=== PATIENT | male | born 1970 | race Caucasian/White ===

== ENCOUNTER 2017-11-27 18:57 | Emergency (ER) | END 2017-11-28 00:54 | disposition home or self-care (01) ==

== ENCOUNTER 2018-02-21 21:09 | Emergency (ER) | END 2018-02-22 01:32 | disposition home or self-care (01) ==

== ENCOUNTER 2018-08-23 19:15 | Observation (INO) | payer SELFPAY ==
[~2018-08-23] VITALS: Ht 165.1 cm; Wt 91.4 kg
[~2018-08-23 19:15] MED LIST: AMLO-147 PO; FIORICET PO; LOSA25TA12 PO
[2018-08-23] MEDS ORDERED: NICARDipine HCL 30 MG CAPSULE PO ONE (22:30)
[2018-08-23] MEDS ORDERED: ASPIRIN 325 MG TAB PO STA (22:35)
[2018-08-23] MEDS ORDERED: NITROGLYCERIN 2% 1 GM OINT PKT TD STA (22:35)
--- NOTE | 2018-08-23 23:05 | ERD ---
ER Documentation Chief Complaint Chief Complaint high BP; dizzy spells the other day; pain on back of head HPI This is a 48-year-old male who is out of his medication for hypertension. He says he has had some substernal chest pressure off and on for 2 days. He said the pain started yesterday and was exertional today has become chest pain at rest. He says he knows his blood pressure is high because he feels it. He also has a very mild dull headache. When he gets the pressure he feels short of breath. No radiation. He does get dizzy. Blood pressure on exam is 249/114 ROS All systems reviewed and are negative except as per history of present illness. Medications Home Meds Active Scripts Amlodipine Besylate* (Amlodipine Besylate*) 10 Mg Tablet, 10 MG PO DAILY, #30 TAB Prov:MARY BETH RODGERS MD 02/22/18 Losartan Potassium* (Losartan Potassium*) 25 Mg Tablet, 25 MG PO DAILY, #30 TAB Prov:MARY BETH RODGERS MD 02/22/18 Acetamin/Butalbital/Caffeine* (Fioricet*) [id number] Tab, 1 TAB PO Q6H PRN for PAIN, #15 TAB Prov:MARY BETH RODGERS MD 02/22/18 Losartan Potassium* (Losartan Potassium*) 25 Mg Tablet, 25 MG PO DAILY, #30 TAB Prov:REGGIE CARLSON MD 11/27/17 Amlodipine Besylate* (Amlodipine Besylate*) 10 Mg Tablet, 10 MG PO DAILY, #30 TAB Prov:REGGIE CARLSON MD 11/27/17 Allergies Allergies: Coded Allergies: No Known Allergies (Verified Allergy, Mild, 11/27/17) PMhx/Soc History of Surgery: No Anesthesia Reaction: No Hx Neurological Disorder: No Hx Respiratory Disorders: No Hx Cardiac Disorders: Yes (htn) Hx Psychiatric Problems: No Hx Miscellaneous Medical Probl: No Hx Alcohol Use: Yes (once/year) Hx Substance Use: Yes (marijuana occasionally) Hx Tobacco Use: No Smoking Status: Never smoker FmHx Family History: No coronary disease Physical Exam Vitals Vital Signs Date Temp Pulse Resp B/P (MAP) Pulse Ox O2 O2 Flow FiO2 Time Delivery Rate 08/23/18 98.2 63 20 214/114 98 19:18 (147) Physical Exam Const: Well-developed, well-nourished Head: Atraumatic, normocephalic Eyes: Normal Conjunctiva, PERRLA, EOMI, normal sclera, no nystagmus ENT: Normal External Ears, Nose and Mouth, moist mucus membranes. Neck: Full range of motion. No meningismus, no lymphadenopathy. Resp: Clear to auscultation bilaterally, no wheezing, rhonchi, rales Cardio: Regular rate and rhythm, no murmurs, S1 S2 present Abd: Soft, non tender x 4, non distended. Normal bowel sounds, no guarding or rebound, no pulsitile abdominal masses or bruits Skin: No petechiae or rashes, no ecchymosis , no maculopapular rash Back: No midline or flank tenderness Ext: No cyanosis, or edema, FROM x 4, normal inspection, n eurovascularly intact x 4 Neur: Awake and alert, STR 5/5 x 4, sensation intact x 4, no focal f indings, cerebellum intact Psych: Normal Mood and Affect Result Diagram: 08/23/181 08/23/181 Results 24 hrs Laboratory Tests Test 08/23/18 22:41 White Blood Count 8.1 10^3/ul Red Blood Count 5.63 10^6/ul Hemoglobin 15.3 g/dl Hematocrit 46.1 % Mean Corpuscular Volume 81.9 fl Mean Corpuscular Hemoglobin 27.2 pg Mean Corpuscular Hemoglobin Concent 33.2 g/dl Red Cell Distribution Width 13.5 % Platelet Count 159 10^3/UL Mean Platelet Volume 12.3 fl Immature Granulocytes % 0.400 % Neutrophils % 52.6 % Lymphocytes % 38.0 % Monocytes % 6.5 % Eosinophils % 2.1 % Basophils % 0.4 % Nucleated Red Blood Cells % 0.0 /100WBC Immature Granulocytes # 0.030 10^3/ul Neutrophils # 4.2 10^3/ul Lymphocytes # 3.1 10^3/ul Monocytes # 0.5 10^3/ul Eosinophils # 0.2 10^3/ul Basophils # 0.0 10^3/ul Nucleated Red Blood Cells # 0.0 10^3/ul Sodium Level 141 mmol/L Potassium Level 4.0 mmol/L Chloride Level 104 mmol/L Carbon Dioxide Level 29 mmol/L Anion Gap 8 Blood Urea Nitrogen 14 mg/dl Creatinine 0.95 mg/dl Est Glomerular Filtrat Rate mL/min > 60 mL/min Glucose Level 125 mg/dl Calcium Level 9.0 mg/dl Total Bilirubin 0.8 mg/dl Direct Bilirubin 0.00 mg/dl Indirect Bilirubin 0.8 mg/dl Aspartate Amino Transf (AST/SGOT) 26 IU/L Alanine Aminotransferase (ALT/SGPT) 34 IU/L Alkaline Phosphatase 91 IU/L Troponin I < 0.012 ng/ml B-Type Natriuretic Peptide 36 PG/ML Total Protein 7.9 g/dl Albumin 4.4 g/dl Globulin 3.50 g/dl Albumin/Globulin Ratio 1.25 Current Medications Medications Dose Sig/Jayce Start Time Status Last (Trade) Ordered Route PRN Stop Time Admin Dose Reason Admin Nicardipine 30 mg ONCE ONCE 08/23/18 DC 08/23/18 HCl PO 22:30 22:30 (Cardene) 08/23/18 22:31 Aspirin 325 mg ONCE STAT 08/23/18 DC 08/23/18 (Aspirin) PO 22:35 22:52 08/23/18 22:36 1 inch ONCE STAT 08/23/18 DC 08/23/18 Nitroglycerin TD 22:35 22:52 08/23/18 22:36 (Nitroglyceri n 2% Oint) Procedures/MDM EKG: Rate/Rhythm: Sinus bradycardia nonspecific T wave QRS, ST, QT: NORMAL [place], QRS, QT] Impression: Sinus bradycardia DIAGNOSTIC IMAGING REPORT Patient: ANNETTE ESQUIVEL : 1970 Age: 48 Sex: M [id number] DOS: 08/23/18 2235 Ordering MD: ASHLEIGH PETERSEN DO Location: E/R Room/Bed: PROCEDURE: Chest. CLINICAL INDICATION: Chest pain. TECHNIQUE: Single frontal view of the chest was obtained. COMPARISON: 11/27/2017. FINDINGS: The cardiac silhouette is within normal limits. The aortic arch is unremarka ble. There is no focal consolidation, vascular congestion or pleural effusion. There is no pneumothorax. IMPRESSION: No evidence for active cardiopulmonary disease. .Remi Rangel MD, Date Time Electronically viewed and signed by .Remi Rangel MD, on 08/23/2018 23:20 .T/ CC: ASHLEIGH PETERSEN DO [id number] Cardiac Admit MDM: Patient's symptoms are concerning for cardiac cause will require inpatient workup and continuous monitoring. Further w/u for ischemia, arrhythmia, PE or dissection will be deferred to the inpatient team. Departure Diagnosis: Primary Impression: Chest pain Chest pain type: unspecified Qualified Codes: R07.9 - Chest pain, unspec ified Additional Impression: Hypertension Hypertension type: unspecified Qualified Codes: I10 - Essential (primary) hypertension Condition: Stable ASHLEIGH PETERSEN DO August 23, 2018 23:05
[2018-08-24] VITALS (11 sets, daily range): BP systolic 153–184; BP diastolic 88–109; PULSE 44–82; RESP 18–20; Ht 165.1 cm; Wt 91.4 kg
[2018-08-24] MEDS ORDERED: SOD CHLORIDE 0.9% 1,000 ML IV SCH (00:19)
--- NOTE | 2018-08-24 00:23 | HP ---
Date/Time of Note Date/Time of Note DATE: 08/24/18 TIME: 00:23 Assessment/Plan VTE Prophylaxis SCD applied (from Nsg): Yes Pharmacological prophylaxis: NA/contraindicated Pharm contraindication: low risk/ambulating Lines/Catheters IV Catheter Type (from Nrsg): Saline Lock Assessment/Plan Hospital Course This is a 48-year-old male being admitted to the telemetry floor for observation for: #1 chest pain: Rule out ACS versus anginal equivalent. Patient did report having exertional symptoms as well. Also possibly secondary to his hypertensive urgency . will check an echocardiogram, will trend cardiac enzymes x3, the first that was negative. We will check hemoglobin A 1C, lipid panel, TSH. Will provide nitro/morphine. Will consult cardiology , I do feel the patient would warrant a stress test. #2 hypertensive urgency: Patient did present with blood pressures greater than 200. We will gradually lower his blood pressures given that they likely have not been under control for quite some time. PRN Vasotec for systolic greater than 180. I will resume his previous amlodipine and losartan medications to be started in the afternoon. Will monitor patient's blood pressures. #3 anxiety/stress: Patient has been dealing with unfortunate life circumstances with the passing of his and his child. Will consult psych for further guidance. #4 obesity: We will check hemoglobin A1c, lipid panel, TSH #5 DVT GI prophylaxis: SCDs, no GI prophylaxis indicated Further treatment strategy will be implemented as per the clinical course. Result Diagram: 08/23/181 08/23/181 Results 24hrs Laboratory Tests Test 08/23/18 22:41 White Blood Count 8.1 Red Blood Count 5.63 Hemoglobin 15.3 Hematocrit 46.1 Mean Corpuscular Volume 81.9 L Mean Corpuscular Hemoglobin 27.2 L Mean Corpuscular Hemoglobin Concent 33.2 Red Cell Distribution Width 13.5 Platelet Count 159 Mean Platelet Volume 12.3 H Immature Granulocytes % 0.400 Neutrophils % 52.6 Lymphocytes % 38.0 Monocytes % 6.5 Eosinophils % 2.1 Basophils % 0.4 Nucleated Red Blood Cells % 0.0 Immature Granulocytes # 0.030 Neutrophils # 4.2 Lymphocytes # 3.1 H Monocytes # 0.5 Eosinophils # 0.2 Basophils # 0.0 Nucleated Red Blood Cells # 0.0 Sodium Level 141 Potassium Level 4.0 Chloride Level 104 Carbon Dioxide Level 29 Anion Gap 8 Blood Urea Nitrogen 14 Creatinine 0.95 Est Glomerular Filtrat Rate mL/min > 60 Glucose Level 125 Calcium Level 9.0 Total Bilirubin 0.8 Direct Bilirubin 0.00 Indirect Bilirubin 0.8 Aspartate Amino Transf (AST/SGOT) 26 Alanine Aminotransferase (ALT/SGPT) 34 Alkaline Phosphatase 91 Troponin I < 0.012 B-Type Natriuretic Peptide 36 Total Protein 7.9 Albumin 4.4 Globulin 3.50 H Albumin/Globulin Ratio 1.25 HPI/ROS Admit Date/Time Admit Date/Time Hx of Present Illness Chief complaint: Chest pressure This is a 48-year-old male who is out of his medication for hypertension for the last 4 months. He reports that he came in with substernal chest pressure that is going on for the last 2 days. Yesterday the pressure became exertional. He does report that he has been dealing with a lot of stress secondary to the of his and then his child over the last few months. He has also not been sleeping much over the last few days. Along with chest pain he felt radiation of it to his left arm. At the current time his chest pain and that pressure have resolved. He does report that he has a blood pressure monitor at home but he has not been checking them much. His blood pressure on arrival to the emergency department is greater than 200. Patient does report that he was seen by Candie thompson in the past and he was recommended to get a stress test however for some reason it was not performed when he was admitted there. Allergies: NKDA Medications: None ROS Const: As per HPI Eyes : No pain discharge or redness or change in visual acuity ENT: No pain, sore throat, congestion, congestion, dysphagia or discharge Respiratory: No shortness of breath, cough, sputum, wheezing, or pleuritic pain Cardiovascular: As per HPI GI : no change in appetite, abdominal pain, nausea, vomiting, diarrhea, constipation, or change in the color his stool Genitourinary: No dysuria, hematuria, flank pain , discharge or CVA tenderness Musculoskeletal: No joint pain, back pain, neck pain, restricted range of motion in neck or joints Skin: No rash, bruising or hives Neuro: As per HPI Endocrine: No polyuria, polydipsia, temperature intolerance Psych: No hallucination, depression, anxiety or suicidal ideation PMH/Family/Social Past Medical History Hypertension, prediabetes Coded Allergies: No Known Allergies (Verified Allergy, Mild, 11/27/17) Past Surgical History Past Surgical Hx: no surgical history Family History Significant Family History: no pertinent family hx Social History Alcohol Use: none Smoking Status: Never smoker Drug Use: marijuana Exam/Review of Systems Vital Signs Vitals Vital Signs Date Temp Pulse Resp B/P (MAP) Pulse Ox O2 O2 Flow FiO2 Time Delivery Rate 08/24/18 67 18 179/94 100 Room Air 00:10 (122) 08/23/18 98.2 19:18 Exam Exam General: Very pleasant male currently lying in bed in no acute distress HEENT: Atraumatic, normocephalic. The pupils are equal, round and reactive. Extraocular motor are intact Neck: Supple with full range of motion. No rigidity or meningismus Chest: Nontender Lungs: Clear to auscultation bilaterally no crackles rales or wheezing Heart: Normal S1-S2, Regular rhythm and rate. No overt murmurs appreciated on auscultation Abdomen: Obese, soft , nontender, nondistended , bowel sounds are present. No guarding no rebound tenderness , No masses or organomegaly. No costovertebral temporal angle mass Extremities: Normal to inspection, no edema no cyanosis Neurologic: Normal mental status, speech normal, cranial nerves II through XII are intact, motor and sensory are intact, Additional Comments PROCEDURE: Chest. CLINICAL INDICATION: Chest pain. TECHNIQUE: Single frontal view of the chest was obtained. COMPARISON: 11/27/2017. FINDINGS: The cardiac silhouette is within normal limits. The aortic arch is unremarkable. There is no focal consolidation, vascular congestion or pleural effusion. There is no pneumothorax. IMPRESSION: No evidence for active cardiopulmonary disease. .Remi Rangel MD, Date Time Electronically viewed and signed by .Remi Rangel MD, on 08/23/2018 23:20 .T/ CC: ASHLEIGH PETERSEN DO [id number] EKG: Rate/Rhythm: Sinus bradycardia nonspecific T wave QRS, ST, QT: NORMAL [place], QRS, QT] Impression: Sinus bradycardia DAIN YUNG August 24, 2018 00:23
[2018-08-24] MEDS ORDERED: NITROGLYCERIN (SL) 0.4 MG TAB SL PRN (00:30)
[2018-08-24] MEDS ORDERED: ACETAMINOPHEN 325 MG TAB PO PRN (00:30)
[2018-08-24] MEDS ORDERED: morphine 2 MG INJ IV PRN (00:30)
[2018-08-24] MEDS ORDERED: BISACODYL (EC) 5 MG TAB PO PRN (00:30)
[2018-08-24] MEDS ORDERED: DOCUSATE SODIUM 100 MG CAP PO PRN (00:30)
[2018-08-24] MEDS ORDERED: ONDANSETRON 4 MG INJ IV PRN ×2 (00:30)
[2018-08-24] MEDS ORDERED: NACL 0.9% 3 ML SYG IV SCH (00:30)
[2018-08-24] MEDS: ACETAMINOPHEN 325 MG TAB PO PRN ×3 (01:46→17:44)
[2018-08-24] MEDS: ENALAPRILAT 1.25 MG INJ IV PRN (02:40)
[2018-08-24] MEDS ORDERED: traZODone 50 MG TAB PO ONE ×2 (04:00→21:30)
[2018-08-24] MEDS ORDERED: traZODone 100 MG TAB ONE (04:05)
--- NOTE | 2018-08-24 11:30 | CONS ---
Assessment/Plan Assessment/Plan Hospital Course (Demo Recall) Assessment: Chest pain - likely due to elevated blood pressures Hypertensive urgency - off of his medications for 4 months Dyslipidemia Recommendations: -serial troponins -given multiple presentations for chest pain and no prior coronary work up, will obtain coronary CTA -continue amlodipine 10mg daily -continue losartan 25mg daily, up titrate as needed -continue atorvastatin 40mg daily Consultation Date/Type/Reason Admit Date/Time Type of Consult Cardiology Reason for Consultation chest pain Date/Time of Note DATE: 08/24/18 TIME: 11:25 Hx of Present Illness The patient is a 48 year-old male who presented with two days of chest pressure. He has a history of hypertension, but had been off of his medications for four months due to lack of health insurance. His initial blood pressure on presentation was elevated at 214/114. EKG showed sinus bradycardia at 53 bpm with nonspecific T wave changes. Initial troponin was negative. He has presented several times in the past with chest pain. He was apparently recommended to have a cardiac stress test during a previous visit at [facility], but never received the test. 14 point review of systems negative other than per HPI. Past Medical History Medical History: hypertension Home Meds Active Scripts Amlodipine Besylate* (Amlodipine Besylate*) 10 Mg Tablet, 10 MG PO DAILY, #30 TAB Prov:MARY BETH RODGERS MD 02/22/18 Losartan Potassium* (Losartan Potassium*) 25 Mg Tablet, 25 MG PO DAILY, #30 TAB Prov:MARY BETH RODGERS MD 18 Acetamin/Butalbital/Caffeine* (Fioricet*) [id number] Tab, 1 TAB PO Q6H PRN for PAIN, #15 TAB Prov:MARY BETH RODGERS MD 02/22/18 Losartan Potassium* (Losartan Potassium*) 25 Mg Tablet, 25 MG PO DAILY, #30 TAB Prov:REGGIE CARLSON MD 11/27/17 Amlodipine Besylate* (Amlodipine Besylate*) 10 Mg Tablet, 10 MG PO DAILY, #30 TAB Prov:REGGIE CARLSON MD 11/27/17 Medications Current Medications IV Flush (NS 3 ml) 3 ml PER PROTOCOL IV ; Start 08/24/18 at 00:30 Ondansetron HCl (Zofran Inj) 4 mg Q6H PRN IV NAUSEA/VOMITING; Start 08/24/18 at 00:30 Nitroglycerin (Nitroglycerin (Sl Tab) 0.4 Mg) 1 tab Q5M PRN SL .CHEST PAIN; Start 08/24/18 at 00:30 Acetaminophen (Tylenol Tab) 650 mg Q6H PRN PO .PAIN 1-3 OR TEMP Last administered on 08/24/18at 02:33; Admin Dose 650 MG; Start 08/24/18 at 00:30 Morphine Sulfate (morphine) 2 mg Q4H PRN IV .PAIN 7-10; Start 08/24/18 at 00:30 Docusate Sodium (Colace) 100 mg Q12H PRN PO .CONSTIPATION; Start 08/24/18 at 00:30 Bisacodyl (Dulcolax) 5 mg DAILY PRN PO .CONSTIPATION; Start 08/24/18 at 00:30 Enalaprilat (Vasotec Iv) 1.25 mg Q6H PRN IV ELEVATED BLOOD PRESSURE Last administered on 08/24/18at 02:40; Admin Dose 1.25 MG; Start 08/24/18 at 00:30 Amlodipine Besylate (Norvasc) 10 mg DAILY PO ; Start 08/24/18 at 12:00 Losartan Potassium (Cozaar) 25 mg DAILY PO ; Start 08/24/18 at 12:00 Sodium Chloride 1,000 ml @ 80 mls/hr [id number] IV Last administered on 08/24/18at 02:33; Admin Dose 80 MLS/HR; Start 08/24/18 at 00:19; Stop 08/24/18 at 12:48 Ondansetron HCl (Zofran Inj) 4 mg ER BRIDGE PRN IV NAUSEA/VOMITING; Start 08/24/18 at 00:30; Stop 08/25/18 at 00:29 Acetaminophen (Tylenol Tab) 650 mg ER BRIDGE PRN PO .MILD PAIN 1-3 OR TEMP; Start 08/24/18 at 00:30; Stop 08/25/18 at 00:29 Atorvastatin Calcium (Lipitor) 40 mg HS PO ; Start 08/24/18 at 21:00 Allergies: Coded Allergies: No Known Allergies (Verified Allergy, Mild, 11/27/17) Past Surgical History Past Surgical Hx: no surgical history Family History Significant Family History: no pertinent family hx Social History Alcohol Use: none Smoking Status: Never smoker Drug Use: marijuana Exam/Review of Systems Vital Signs Vitals Vital Signs Date Temp Pulse Resp B/P (MAP) Pulse Ox O2 O2 Flow FiO2 Time Delivery Rate 08/24/18 97.5 54 20 157/99 95 Room Air 11:21 (118) Intake and Output 08/23/18 08/23/18 08/24/18 1515:00 23:00 07:00 IntakeIntake Total 300 ml BalanceBalance 300 ml Exam Constitutional: alert, well developed Psych: no complaints, nl mood/affect Head: normocephalic, atraumatic Eyes: nl conjunctiva, nl lids ENMT: nl external ears & nose, nl nasal mucosa & septum Neck: supple, non-tender Respiratory: clear to auscultation, normal air movement Cardiovascular: regular rate and rhythm Gastrointestinal: soft, non-tender Musculoskeletal: nl extremities to inspection Extremities: No cyanosis, No clubbing, No edema Neurological: nl mental status, nl speech Labs Result Diagram: 08/24/18 0457 08/24/18 0457 Results 24hrs Laboratory Tests Test 08/23/18 22:41 08/24/18 04:57 White Blood Count 8.1 7.2 Red Blood Count 5.63 5.47 Hemoglobin 15.3 14.9 Hematocrit 46.1 44.8 Mean Corpuscular Volume 81.9 L 81.9 L Mean Corpuscular Hemoglobin 27.2 L 27.2 L Mean Corpuscular Hemoglobin Concent 33.2 33.3 Red Cell Distribution Width 13.5 13.5 Platelet Count 159 165 Mean Platelet Volume 12.3 H 12.8 H Immature Granulocytes % 0.400 0.100 Neutrophils % 52.6 48.4 Lymphocytes % 38.0 41.9 Monocytes % 6.5 7.3 Eosinophils % 2.1 1.9 Basophils % 0.4 0.4 Nucleated Red Blood Cells % 0.0 0.0 Immature Granulocytes # 0.030 0.010 Neutrophils # 4.2 3.5 Lymphocytes # 3.1 H 3.0 H Monocytes # 0.5 0.5 Eosinophils # 0.2 0.1 Basophils # 0.0 0.0 Nucleated Red Blood Cells # 0.0 0.0 Sodium Level 141 140 Potassium Level 4.0 3.7 Chloride Level 104 106 Carbon Dioxide Level 29 29 Anion Gap 8 5 Blood Urea Nitrogen 14 15 Creatinine 0.95 1.01 Est Glomerular Filtrat Rate mL/min > 60 > 60 Glucose Level 125 99 Calcium Level 9.0 8.9 Total Bilirubin 0.8 0.9 Direct Bilirubin 0.00 0.00 Indirect Bilirubin 0.8 0.9 Aspartate Amino Transf (AST/SGOT) 26 24 Alanine Aminotransferase (ALT/SGPT) 34 32 Alkaline Phosphatase 91 72 Troponin I < 0.012 B-Type Natriuretic Peptide 36 Total Protein 7.9 7.1 Albumin 4.4 4.0 Globulin 3.50 H 3.10 Albumin/Globulin Ratio 1.25 1.29 Hemoglobin A1c 5.9 Magnesium Level 2.2 Triglycerides Level 200 H Cholesterol Level 234 H LDL Cholesterol, Calculated 155 HDL Cholesterol 39 Cholesterol/HDL Ratio 6.0 Thyroid Stimulating Hormone (TSH) 2.930 Medications Medications Current Medications IV Flush (NS 3 ml) 3 ml PER PROTOCOL IV ; Start 08/24/18 at 00:30 Ondansetron HCl (Zofran Inj) 4 mg Q6H PRN IV NAUSEA/VOMITING; Start 08/24/18 at 00:30 Nitroglycerin (Nitroglycerin (Sl Tab) 0.4 Mg) 1 tab Q5M PRN SL .CHEST PAIN; Start 08/24/18 at 00:30 Acetaminophen (Tylenol Tab) 650 mg Q6H PRN PO .PAIN 1-3 OR TEMP Last administered on 08/24/18at 02:33; Admin Dose 650 MG; Start 08/24/18 at 00:30 Morphine Sulfate (morphine) 2 mg Q4H PRN IV .PAIN 7-10; Start 08/24/18 at 00:30 Docusate Sodium (Colace) 100 mg Q12H PRN PO .CONSTIPATION; Start 08/24/18 at 00:30 Bisacodyl (Dulcolax) 5 mg DAILY PRN PO .CONSTIPATION; Start 08/24/18 at 00:30 Enalaprilat (Vasotec Iv) 1.25 mg Q6H PRN IV ELEVATED BLOOD PRESSURE Last administered on 08/24/18at 02:40; Admin Dose 1.25 MG; Start 08/24/18 at 00:30 Amlodipine Besylate (Norvasc) 10 mg DAILY PO ; Start 08/24/18 at 12:00 Losartan Potassium (Cozaar) 25 mg DAILY PO ; Start 08/24/18 at 12:00 Sodium Chloride 1,000 ml @ 80 mls/hr [id number] IV Last administered on 08/24/18at 02:33; Admin Dose 80 MLS/HR; Start 08/24/18 at 00:19; Stop 08/24/18 at 12:48 Ondansetron HCl (Zofran Inj) 4 mg ER BRIDGE PRN IV NAUSEA/VOMITING; Start 08/24/18 at 00:30; Stop 08/25/18 at 00:29 Acetaminophen (Tylenol Tab) 650 mg ER BRIDGE PRN PO .MILD PAIN 1-3 OR TEMP; Start 08/24/18 at 00:30; Stop 08/25/18 at 00:29 Atorvastatin Calcium (Lipitor) 40 mg HS PO ; Start 08/24/18 at 21:00 ANA LUISA MUÑOZ MD August 24, 2018 11:30
--- NOTE | 2018-08-24 11:55 | RADRPT ---
Vent Rate: 53 bpm RR Interval: 0 msec NV Interval: 148 msec QRS Duration: 86 msec QT Interval: 412 msec QTC Interval: 386 msec P-R-T [place]: 10 - -12 - 43 degrees Sinus bradycardia Nonspecific T wave abnormality Abnormal ECG Electronically Signed By: *[facility]
[2018-08-24] MEDS: AMLODIPINE 10 MG TAB PO SCH (12:07)
[2018-08-24] MEDS: LOSARTAN 25 MG TAB PO SCH (12:07)
--- NOTE | 2018-08-24 13:00 | RADRPT ---
Echocardiogram Report Patient Name: ANNETTE ESQUIVELPatient ID: [id number] : 1970 (48y 2m)Study Date: 08/24/2018 7:38:59 AM Gender: MAccession #: [id number] Tech: Marylou Crow RDCS Location: 605 Ref.Physician: DAIN YUNG Height(Cm): BSA: Weight(Kg): Quality: AdequateOrder Physician: DAIN YUNG Account #: Procedures: Echocardiographic Report: Transthoracic echocardiogram with complete 2D, M-Mode, and doppler examination. Indications: Chest Pain. Measurements: 2D/M Mode Doppler Measurement Value Normal Range Measurement Value Normal Range LVIDd 2D 4.0 [ 4.2 - 5.8 ] cm AV Peak Dipesh 1.5 [ 100.0 - 170.0 ] cm/sec LVIDs 2D 2.4 [ 2.5 - 4.0 ] cm AV Peak PG 9.0 [ 2.0 - 9.0 ] mmHg LVPWd 2D 1.4 [ 0.6 - 1.0 ] cm LVOT Peak Dipesh 1.2 [ 70.0 - 110.0 ] cm/sec IVSd 2D 1.3 [ 0.6 - 1.0 ] cm LVOT Peak PG 5.0 [ 2.0 - 6.0 ] mmHg AoR Diam 2D 3.3 [ 2.6 - 3.4 ] cm MV E Peak Dipesh 0.6 [ 60.0 - 130.0 ] cm/sec EDV 2D 69.2 [ 62.0 - 150.0 ] ml MV A Peak Dipesh 0.9 [ 100.0 - 120.0 ] cm/sec ESV 2D 20.2 [ 21.0 - 61.0 ] ml MV E/A 0.7 [ 0.8 - 1.5 ] ratio EF 2D 70.8 [ 52.0 - 72.0 ] percent MV Decel Time 222 [ 104 - 258 ] msec LA Dimen 2D 3.1 [ 3.0 - 4.0 ] cm Lat E` Dipesh 0.1 [ 10.0 - 15.0 ] cm/sec Lateral E/E` 9.8 [ 1.0 - 2.0 ] ratio MV E/A 0.7 [ 0.8 - 1.5 ] ratio Findings: Left Ventricle: Normal left ventricular systolic function. Normal left ventricular cavity size. Moderate concentric left ventricular hypertrophy. Ejection fraction is visually estimated at 65 %. Tissue Doppler/Mitral Doppler indices are consistent with impaired relaxation (Stage I diastolic dysfunction). Right Ventricle: Normal right ventricular size. Normal right ventricular systolic function. Left Atrium: The left atrium is normal in size. Right Atrium: The right atrium is normal in size. Mitral Valve: Normal appearance and function of the mitral valve with trace physiologic regurgitation. Aortic Valve: Normal appearance of the aortic valve. No significant aortic stenosis or insufficiency. Tricuspid Valve: Normal appearance of the tricuspid valve. Unable to obtain RVSP due to minimal presence of tricuspid regurgitation. Pulmonic Valve: Normal pulmonic valve appearance. Pericardium: Normal pericardium with no significant pericardial effusion. Aorta: Normal aortic root. IVC: Normal size and normal respiratory collapse consistent with normal right atrial pressure. Conclusions: Normal left ventricular systolic function. Normal left ventricular cavity size. Moderate concentric left ventricular hypertrophy. Ejection fraction is visually estimated at 65 %. Tissue Doppler/Mitral Doppler indices are consistent with impaired relaxation (Stage I diastolic dysfunction). Electronically Signed By: Jamel Bermudez 2018-08-24 12:58:57 PDT
[2018-08-24] MEDS ORDERED: SOD CHLORIDE 0.9% 100 ML ONE (14:55)
[2018-08-24] MEDS ORDERED: IOHEXOL 100 ML ONE (14:55)
[2018-08-24] MEDS ORDERED: IOHEXOL 350MG/ML 50 ML BTL ONE (14:55)
[2018-08-24] MEDS ORDERED: ATORVASTATIN 40 MG TAB PO SCH (21:00)
[2018-08-25] VITALS (11 sets, daily range): BP systolic 139–202; BP diastolic 81–108; PULSE 53–81; RESP 18–20
[2018-08-25] MEDS: LOSARTAN 25 MG TAB PO SCH (08:01)
[2018-08-25] MEDS: AMLODIPINE 10 MG TAB PO SCH (08:01)
--- NOTE | 2018-08-25 08:28 | CONS ---
Assessment/Plan Assessment/Plan Hospital Course (Demo Recall) Chest pain - likely due to elevated blood pressures. Cardiac CTA without obstructive disease CAD: nonobstructive. LAD 40%, RCA 30% on Cardiac CTA 08/24/18 Hypertensive urgency - off of his medications for 4 months. Needs better control Dyslipidemia -continue amlodipine 10mg daily -increase to losartan 100mg daily -continue atorvastatin 40mg daily -add ASA 81mg for CAD otherwise ok for d/c if BP is <160. Can titrate further as outpt Consultation Date/Type/Reason Admit Date/Time August 24, 2018 at 00:23 Initial Consult Date Type of Consult Cardiology Date/Time of Note DATE: 08/25/18 TIME: 08:24 24 HR Interval Summary Free Text/Dictation No events. No chest pain. BP still high. Cardiac CT completed Exam/Review of Systems Vital Signs Vitals Vital Signs Date Temp Pulse Resp B/P (MAP) Pulse Ox O2 O2 Flow FiO2 Time Delivery Rate 08/25/18 97.5 73 20 175/97 95 Room Air 07:19 (123) Intake and Output 08/24/18 08/24/18 08/25/18 1515:00 23:00 07:00 IntakeIntake Total 360 ml 700 ml 750 ml BalanceBalance 360 ml 700 ml 750 ml Exam Constitutional: alert, oriented Psych: no complaints, nl mood/affect Head: normocephalic, atraumatic Neck: supple; No jvd Respiratory: clear to auscultation Cardiovascular: regular rate and rhythm; No edema, No systolic murmur Gastrointestinal: soft, non-tender; No distended Neurological: nl mental status, nl speech Labs Result Diagram: 08/25/18 0459 08/25/18 0459 Results 24hrs Laboratory Tests Test 08/24/18 12:02 08/24/18 22:56 08/25/18 04:59 Troponin I < 0.012 < 0.012 0.023 Creatine Kinase 94 87 Creatine Kinase Index 0.9 0.8 Creatinine Kinase MB (Mass) 0.80 0.71 White Blood Count 7.5 Red Blood Count 5.50 Hemoglobin 15.0 Hematocrit 45.0 Mean Corpuscular Volume 81.8 L Mean Corpuscular Hemoglobin 27.3 L Mean Corpuscular Hemoglobin Concent 33.3 Red Cell Distribution Width 13.4 Platelet Count 171 Mean Platelet Volume 13.0 H Immature Granulocytes % 0.300 Neutrophils % 46.2 Lymphocytes % 43.6 Monocytes % 6.3 Eosinophils % 3.2 Basophils % 0.4 Nucleated Red Blood Cells % 0.0 Immature Granulocytes # 0.020 Neutrophils # 3.5 Lymphocytes # 3.3 H Monocytes # 0.5 Eosinophils # 0.2 Basophils # 0.0 Nucleated Red Blood Cells # 0.0 Sodium Level 141 Potassium Level 4.1 Chloride Level 106 Carbon Dioxide Level 26 Anion Gap 9 Blood Urea Nitrogen 13 Creatinine 0.89 Est Glomerular Filtrat Rate mL/min > 60 Glucose Level 103 Calcium Level 9.1 Total Bilirubin 1.1 Direct Bilirubin 0.00 Indirect Bilirubin 1.1 Aspartate Amino Transf (AST/SGOT) 22 Alanine Aminotransferase (ALT/SGPT) 31 Alkaline Phosphatase 76 Total Protein 7.0 Albumin 3.9 Globulin 3.10 Albumin/Globulin Ratio 1.25 Medications Medications Current Medications IV Flush (NS 3 ml) 3 ml PER PROTOCOL IV ; Start 08/24/18 at 00:30 Ondansetron HCl (Zofran Inj) 4 mg Q6H PRN IV NAUSEA/VOMITING; Start 08/24/18 at 00:30 Nitroglycerin (Nitroglycerin (Sl Tab) 0.4 Mg) 1 tab Q5M PRN SL .CHEST PAIN; Start 08/24/18 at 00:30 Acetaminophen (Tylenol Tab) 650 mg Q6H PRN PO .PAIN 1-3 OR TEMP Last administered on 08/24/18at 17:44; Admin Dose 650 MG; Start 08/24/18 at 00:30 Morphine Sulfate (morphine) 2 mg Q4H PRN IV .PAIN 7-10; Start 08/24/18 at 00:30 Docusate Sodium (Colace) 100 mg Q12H PRN PO .CONSTIPATION; Start 08/24/18 at 00:30 Bisacodyl (Dulcolax) 5 mg DAILY PRN PO .CONSTIPATION; Start 08/24/18 at 00:30 Enalaprilat (Vasotec Iv) 1.25 mg Q6H PRN IV ELEVATED BLOOD PRESSURE Last administered on 08/24/18at 02:40; Admin Dose 1.25 MG; Start 08/24/18 at 00:30 Amlodipine Besylate (Norvasc) 10 mg DAILY PO Last administered on 08/25/18at 08:01; Admin Dose 10 MG; Start 08/24/18 at 12:00 Atorvastatin Calcium (Lipitor) 40 mg HS PO Last administered on 08/24/18at 21:18; Admin Dose 40 MG; Start 08/24/18 at 21:00 Losartan Potassium (Cozaar) 100 mg DAILY PO ; Start 08/25/18 at 09:00 MONIKA MAK August 25, 2018 08:27
[2018-08-25] MEDS ORDERED: LOSARTAN 25 MG TAB PO ONE (08:30)
[2018-08-25] MEDS ORDERED: ASPIRIN 81 MG TAB PO SCH (09:00)
[2018-08-25] MEDS ORDERED: LOSARTAN 50 MG TAB PO SCH (09:00)
[2018-08-25] MEDS: ENALAPRILAT 1.25 MG INJ IV PRN (11:31)
--- NOTE | 2018-08-25 12:39 | PDOCDIS ---
Discharge Instructions CONDITION [id number] Patient Condition: [id number] Stable HOME CARE INSTRUCTIONS: [id number] Diet Instructions: [id number] Low Fat /Cholesterol ACTIVITY: [id number] Activity Restrictions: [id number] Slowly Increase Activity Rest between Activity Avoid heavy lifting FOLLOW UP/APPOINTMENTS Follow-up Plan Please take your medications as prescribed, see your doctor in the clinic in the next 1 week. SUNNY GREEN August 25, 2018 12:39
[2018-08-25] MEDS ORDERED: LOSA50TA2 PO (12:40)
[2018-08-25] MEDS ORDERED: AMLO-147 PO (12:40)
[2018-08-25] MEDS ORDERED: ATOR40TA68 PO (12:40)
--- NOTE | 2018-08-25 12:46 | DS ---
Date/Time of Note Date/Time of Note DATE: 08/25/18 TIME: 12:43 Discharge Summary Admission/Discharge Info Admit Date/Time August 24, 2018 at 00:23 Discharge Date/Time Discharge Diagnosis Chest pain - likely due to elevated blood pressures. Cardiac CTA without obst ructive disease CAD: nonobstructive. LAD 40%, RCA 30% on Cardiac CTA 08/24/18 Hypertensive urgency Dyslipidemia Patient Condition: Stable Procedures 2D echo: Conclusions: Normal left ventricular systolic function. Normal left ventricular cavity size. Moderate concentric left ventricular hypertrophy. Ejection fraction is visually estimated at 65 %. Tissue Doppler/Mitral Doppler indices are consistent with impaired relaxation (Stage I diastolic dysfunction). Hx of Present Illness 48-year-old male who is out of his medication for hypertension for the last 4 months. He reports that he came in with substernal chest pressure that is going on for the last 2 days. Yesterday the pressure became exertional. He does report that he has been dealing with a lot of stress secondary to the of his and then his child over the last few months. He has also not been sleeping much over the last few days. Along with chest pain he felt radiation of it to his left arm. At the current time his chest pain and that pressure have resolved. He does report that he has a blood pressure monitor at home but he has not been checking them much. His blood pressure on arrival to the emergency department is greater than 200. Patient does report that he was seen by Candie thompson in the past and he was recommended to get a stress test however for some reason it was not performed when he was admitted there. Hospital Course Patient was admitted and ruled out for acute coronary syndrome. He also had echocardiogram performed with results listed above. He was also seen by cardiology team during this hospital stay and underwent CT angios coronary test as well that did not show any acute blockage.specifically it showed CAD: nonobstructive. LAD 40%, RCA 30% on Cardiac CTA 08/24/18. Patient also started on statin medicine for high cholesterol. Patient also had hypertensive urgency and his blood pressure medicines were titrated accordingly. He was able to ambulate, tolerated p.o. diet. His blood pressure was a little high on the day of discharge, once it is below 160 systolic today, because adjustments have been made to his blood pressure medicines he will be discharged home today in that [facility] emergency department. See below for full list of discharge medications. Home Meds Active Scripts Atorvastatin* (Atorvastatin*) 40 Mg Tablet, 40 MG PO HS, #30 TAB 2 Refills Prov:TRINH GREENEEP S. 08/25/18 Losartan Potassium* (Cozaar*) 50 Mg Tablet, 100 MG PO DAILY, #30 TAB 2 Refills Prov:RARACHELE,SUNNY S. 08/25/18 Amlodipine Besylate* (Amlodipine Besylate*) 10 Mg Tablet, 10 MG PO DAILY, #30 TAB 2 Refills Prov:RARACHELE,SUNNY S. 08/25/18 Acetamin/Butalbital/Caffeine* (Fioricet*) [id number] Tab, 1 TAB PO Q6H PRN for PAIN, #15 TAB Prov:MARY BETH RODGERS MD 02/22/18 Discontinued Scripts Losartan Potassium* (Losartan Potassium*) 25 Mg Tablet, 25 MG PO DAILY, #30 TAB Prov:RGEGIE CARLSON MD 11/27/17 Follow-up Plan Please take your medications as prescribed, see your doctor in the clinic in the next 1 week. Primary Care Provider Care Physician No Primary Time spent on discharge: > 30 minutes Pending Labs Laboratory Tests Test 08/24/18 22:56 08/25/18 04:59 Creatine Kinase 94 IU/L (23-200) 87 IU/L (23-200) Creatine Kinase Index 0.9 0.8 Creatinine Kinase MB 0.80 ng/ml (0.0-2.4) 0.71 ng/ml (0.0-2.4) (Mass) Troponin I < 0.012 0.023 ng/ml (0.000-0.120) ng/ml (0.000-0.120) White Blood Count 7.5 10^3/ul (4.8-10.8) Red Blood Count 5.50 10^6/ul (4.70-6.10) Hemoglobin 15.0 g/dl (14.0-18.0) Hematocrit 45.0 % (42.0-52.0) Mean Corpuscular Volume 81.8 fl (82.0-101.0) Mean Corpuscular 27.3 pg (29.0-33.0) Hemoglobin Mean Corpuscular 33.3 g/dl (32.0-37.0) Hemoglobin Concent Red Cell Distribution 13.4 % (11.5-14.5) Width Platelet Count 171 10^3/UL (140-415) Mean Platelet Volume 13.0 fl (7.4-10.4) Immature Granulocytes % 0.300 % (0.001-0.429) Neutrophils % 46.2 % (39.0-77.0) Lymphocytes % 43.6 % (15.0-51.0) Monocytes % 6.3 % (0.0-11.0) Eosinophils % 3.2 % (0.0-7.0) Basophils % 0.4 % (0.0-2.0) Nucleated Red Blood Cells 0.0 /100WBC (0.0-0.0) % Immature Granulocytes # 0.020 10^3/ul (0.0-0.031) Neutrophils # 3.5 10^3/ul (1.6-7.5) Lymphocytes # 3.3 10^3/ul (0.8-2.9) Monocytes # 0.5 10^3/ul (0.3-0.9) Eosinophils # 0.2 10^3/ul (0.0-0.5) Basophils # 0.0 10^3/ul (0.0-0.1) Nucleated Red Blood Cells 0.0 10^3/ul (0.0-0.0) # Sodium Level 141 mmol/L (135-144) Potassium Level 4.1 mmol/L (3.5-5.1) Chloride Level 106 mmol/L (97-110) Carbon Dioxide Level 26 mmol/L (21-31) Anion Gap 9 (5-13) Blood Urea Nitrogen 13 mg/dl (7-20) Creatinine 0.89 mg/dl (0.61-1.24) Est Glomerular Filtrat > 60 mL/min (>60) Rate mL/min Glucose Level 103 mg/dl (70-220) Calcium Level 9.1 mg/dl (8.4-10.2) Total Bilirubin 1.1 mg/dl (0.2-1.3) Direct Bilirubin 0.00 mg/dl (0.00-0.20) Indirect Bilirubin 1.1 mg/dl (0-1.1) Aspartate Amino 22 IU/L (15-46) Transf (AST/SGOT) Alanine 31 IU/L (13-69) Aminotransferase (ALT/SGPT ) Alkaline Phosphatase 76 IU/L (42-121) Total Protein 7.0 g/dl (6.1-8.1) Albumin 3.9 g/dl (3.3-4.9) Globulin 3.10 g/dl (1.3-3.2) Albumin/Globulin Ratio 1.25 SUNNY GREEN August 25, 2018 12:46
[2018-08-25] MEDS ORDERED: hydrALAzine 20 MG INJ IV PRN (13:00)
[2018-08-25] MEDS: ACETAMINOPHEN 325 MG TAB PO PRN (15:31)
[2018-08-25] MEDS ORDERED: ENALAPRILAT 1.25 MG INJ IV PRN (16:30)
[2018-08-26] MEDS ORDERED: LOSARTAN 50 MG TAB PO SCH (09:00)
== END 2018-08-25 17:05 | disposition home or self-care (01) ==
LOC: E/R 19:15 → 6WM 08-24 00:23
PROVIDERS: ADMIT Family Medicine; ATTEND Hospitalist
DX: R07.9 Chest pain, unspecified (principal); I25.10 Atherosclerotic heart disease of native coronary artery without angina pectoris; I16.0 Hypertensive urgency; E78.5 Hyperlipidemia, unspecified; I10 Essential (primary) hypertension; E66.9 Obesity, unspecified; Z68.35 Body mass index [BMI] 35.0-35.9, adult; F41.9 Anxiety disorder, unspecified; F43.9 Reaction to severe stress, unspecified
CPT/HCPCS: 36415; 71045; 75571; 75574; 80053; 80061; 82306; 82550; 82553; 83036; 83735; 83880; 84443; 84484; 85025; 93005; 93306; 99285; G0378; J0360; J7030; Q9967